=== PATIENT | male | born 1955 | race Caucasian/White ===

== ENCOUNTER 2021-12-24 17:00 | Inpatient (IN) | payer OTHER ==
[~2021-12-24] VITALS: Ht 177.8 cm; Wt 103.5 kg
[~2021-12-24 17:00] MED LIST: BENICAR20 MG PO; MOTRIN200 MG PO; NEXIUM40 MG PO; PROMETHAZINE HC25 M1 PO; TYLENOL WITH C1 EACH PO
[2021-12-24] MEDS ORDERED: DILTIAZEM HCL VIAL 5 ML ONE (17:27)
[2021-12-24] MEDS ORDERED: SODIUM CHLORIDE 0.9% 1000ML 1,000 ML ONE ×2 (17:27→18:00)
[2021-12-24] MEDS ORDERED: SODIUM CHLORIDE 0.9% 1000ML 1,000 ML IV STA ×2 (17:41→19:29)
[2021-12-24 17:43] LABS: BASOPHILS % 0.2 % (0.0-1.0); EOSINOPHILS % 0.2 % (0.0-6.0); HEMATOCRIT 41.9 % (38.2-49.6); LYMPHOCYTES # (AUTO) 2.1 (1.0-3.2); LYMPHOCYTES % 20.1 % (18.0-39.1); MEAN CORPUSCULAR HEMOGLOBIN 29.2 pg (28-32); MEAN CORPUSCULAR HGB CONC 33.4 g/dL (31-35); MEAN CORPUSCULAR VOLUME 87.5 fL (81-99); MONOCYTES # (AUTO) 0.9 (0.2-0.8); MONOCYTES % 8.5 % (4.4-11.3); NEUTROPHILS # (AUTO) 7.4 (2.1-6.9); NEUTROPHILS % 70.5 % (38.7-80.0); PLATELET COUNT 356 x10e3/uL (140-360); RED BLOOD COUNT 4.79 x10e6/uL (4.3-5.7); RED CELL DISTRIBUTION WIDTH 13.9 % (11.7-14.4)
[2021-12-24] MEDS ORDERED: DILTIAZEM HCL 5 MG/ML 5 ML VIAL IV ONE (17:45)
[2021-12-24] MEDS ORDERED: SODIUM CHLORIDE 0.9% 1000ML 1,000 ML IV ONE ×2 (17:50→19:45)
[2021-12-24] MEDS ORDERED: METOPROLOL TARTRATE INJ 1 MG/ML VIAL IV ONE ×2 (18:15)
[2021-12-24 18:21] LABS: MAGNESIUM 2.1 MG/DL (1.3-2.1)
[2021-12-24 18:26] LABS: ALBUMIN 3.7 g/dL (3.5-5.0); ALBUMIN/GLOBULIN RATIO 1.2 (0.8-2.0); ANION GAP 15.6 mmol/L (8-16); CALCIUM 9.1 mg/dL (8.4-10.2); CREATININE, SERUM 1.38 mg/dL (0.72-1.25); POTASSIUM 3.6 mmol/L (3.5-5.1)
[2021-12-24 18:38] LABS: THYROID STIMULATING HORMONE 3.066 uIU/mL (0.350-4.940)
[2021-12-24] MEDS ORDERED: CEFTRIAXONE 1 GM VIAL IV ONE (18:45)
[2021-12-24] MEDS ORDERED: Vancomycin IV 1 GM in SODIUM CHLORIDE 0.9% 250ML 250 ML IV ONE (18:45)
[2021-12-24] MEDS ORDERED: SODIUM CHLORIDE 0.9% 50ML 50 ML ONE ×2 (18:58→19:15)
[2021-12-24] MEDS ORDERED: AMIODARONE HCL 150 MG/100 ML BAG IV ONE (19:15)
[2021-12-24] MEDS ORDERED: IOPAMIDOL 370 MG/ML 200 ML INFUS..BTL INJ ONE (19:16)
[2021-12-24] MEDS ORDERED: AMIODARONE 900MG 500 ML IV ONE (19:25)
[2021-12-24] MEDS ORDERED: AMIODARONE HCL 150MG 100 ML ONE (19:25)
[2021-12-24] MEDS ORDERED: AMIODARONE 900MG 900 MG in Premix Bag 1 BAG IV SCH (19:30)
[2021-12-24 21:55] LABS: CLARITY,URINE CLEAR (CLEAR); COLOR,URINE YELLOW (YELLOW); KETONES,URINE NEGATIVE (NEGATIVE); LEUKOCYTE ESTERASE ,URINE NEGATIVE (NEGATIVE); NITRITE,URINE NEGATIVE (NEGATIVE); PROTEIN,URINE DIPSTICK NEGATIVE (NEGATIVE); RBC,URINE 0-5 /HPF (0-5); URINE UROBILINOGEN 0.2 mg/dL (0.2 - 1); WBC,URINE (MAN) 0-5 /HPF (0-5)
[2021-12-24 21:56] LABS: BACTERIA,URINE FEW /HPF; EPITHELIAL CELLS,URINE FEW /LPF
[2021-12-25] VITALS (23 sets, daily range): BP systolic 84–147; BP diastolic 54–131
[2021-12-25] MEDS: SODIUM CHLORIDE 0.9% 1000ML 1,000 ML IV SCH ×2 (00:28→06:01)
[2021-12-25 04:52] LABS: BASOPHILS % 0.4 % (0.0-1.0); EOSINOPHILS % 0.5 % (0.0-6.0); HEMATOCRIT 38.1 % (38.2-49.6); HEMOGLOBIN 12.3 g/dL (14.0-18.0); LYMPHOCYTES % 24.8 % (18.0-39.1); MEAN CORPUSCULAR HEMOGLOBIN 29.2 pg (28-32); MEAN CORPUSCULAR HGB CONC 32.3 g/dL (31-35); MONOCYTES # (AUTO) 0.7 (0.2-0.8); MONOCYTES % 8.8 % (4.4-11.3); NEUTROPHILS # (AUTO) 5.3 (2.1-6.9); PLATELET COUNT 230 x10e3/uL (140-360); RED BLOOD COUNT 4.21 x10e6/uL (4.3-5.7); RED CELL DISTRIBUTION WIDTH 14.6 % (11.7-14.4)
[2021-12-25 05:01] LABS: MEAN CORPUSCULAR VOLUME 90.5 fL (81-99)
[2021-12-25 05:13] LABS: ANION GAP 11.1 mmol/L (8-16); CALCIUM 7.9 mg/dL (8.4-10.2); CREATININE, SERUM 1.02 mg/dL (0.72-1.25); POTASSIUM 4.1 mmol/L (3.5-5.1)
[2021-12-25] MEDS ORDERED: VENLAFAXINE HCL75 M1 PO (08:15)
[2021-12-25] MEDS ORDERED: ALEVE220 MG PO (08:15)
[2021-12-25] MEDS ORDERED: LEVOCETIRIZINE D5 MG PO (08:15)
[2021-12-25] MEDS ORDERED: METOPROLOL SUCC50 MG PO (08:15)
[2021-12-25] MEDS ORDERED: MONTELUKAST SOD10 MG PO (08:15)
[2021-12-25] MEDS ORDERED: AMLODIPINE BESYL5 MG PO (08:15)
[2021-12-25] MEDS ORDERED: MONTELUKAST SODIUM 10 MG TAB PO SCH (09:00)
[2021-12-25] MEDS ORDERED: NAPROXEN 250 MG TAB PO SCH (09:00)
[2021-12-25] MEDS: AMLODIPINE BESYLATE 5 MG TAB PO SCH (09:22)
[2021-12-25] MEDS: PANTOPRAZOLE SOD 40 MG TABEC PO SCH (09:22)
[2021-12-25 10:47] LABS: INR 1.02; PROTHROMBIN TIME 14.3 seconds (11.9-14.5)
[2021-12-25 10:48] LABS: PARTIAL THROMBOPLASTIN TIME 27.7 seconds (23.8-35.5)
[2021-12-25 11:35] LABS: CHOL/HDL RATIO 5.5 (3.9-4.7)
[2021-12-25] MEDS: METOPROLOL SUCCINATE 50 MG TAB XL PO SCH (11:45)
[2021-12-25] MEDS: APIXABAN 5 MG TABLET PO SCH ×2 (11:45→17:01)
[2021-12-25] MEDS: DOCUSATE SODIUM 100 MG CAP PO SCH (11:45)
[2021-12-25] MEDS: SENNOSIDES 8.6 MG TAB PO SCH (11:45)
[2021-12-25] MEDS: AMIODARONE HCL 200 MG TAB PO SCH (11:46)
[2021-12-25] MEDS ORDERED: HEPARIN SOD (PORCINE) 5,000 UNIT/ML VIAL SC SCH (14:00)
[2021-12-26] VITALS: BP 117/75
[2021-12-26 04:00] VITALS: BP 117/81
[2021-12-26 05:44] LABS: BASOPHILS % 0.3 % (0.0-1.0); EOSINOPHILS # (AUTO) 0.1 (0.0-0.4); EOSINOPHILS % 1.4 % (0.0-6.0); HEMATOCRIT 37.7 % (38.2-49.6); HEMOGLOBIN 12.5 g/dL (14.0-18.0); LYMPHOCYTES # (AUTO) 2.1 (1.0-3.2); MEAN CORPUSCULAR HEMOGLOBIN 29.2 pg (28-32); MEAN CORPUSCULAR HGB CONC 33.2 g/dL (31-35); MEAN CORPUSCULAR VOLUME 88.1 fL (81-99); MONOCYTES # (AUTO) 0.6 (0.2-0.8); MONOCYTES % 8.5 % (4.4-11.3); NEUTROPHILS # (AUTO) 4.1 (2.1-6.9); NEUTROPHILS % 59.4 % (38.7-80.0); PLATELET COUNT 272 x10e3/uL (140-360); RED BLOOD COUNT 4.28 x10e6/uL (4.3-5.7); RED CELL DISTRIBUTION WIDTH 14.2 % (11.7-14.4)
[2021-12-26 06:08] LABS: ALBUMIN 3.1 g/dL (3.5-5.0); ALBUMIN/GLOBULIN RATIO 1.2 (0.8-2.0); ANION GAP 9.9 mmol/L (8-16); CALCIUM 8.2 mg/dL (8.4-10.2); CREATININE, SERUM 1.03 mg/dL (0.72-1.25); POTASSIUM 3.9 mmol/L (3.5-5.1)
[2021-12-26 06:32] LABS: FREE T4 (FREE THYROXINE) 0.88 ng/dL (0.8-1.8); THYROID STIMULATING HORMONE 1.596 uIU/mL (0.350-4.940)
[2021-12-26] MEDS: PANTOPRAZOLE SOD 40 MG TABEC PO SCH (06:40)
[2021-12-26 08:00] VITALS: BP 130/75
[2021-12-26 08:04] VITALS: BP 117/81
[2021-12-26] MEDS: AMLODIPINE BESYLATE 5 MG TAB PO SCH (09:02)
[2021-12-26] MEDS: APIXABAN 5 MG TABLET PO SCH (09:02)
[2021-12-26] MEDS: AMIODARONE HCL 200 MG TAB PO SCH (09:02)
[2021-12-26] MEDS: SENNOSIDES 8.6 MG TAB PO SCH (09:02)
[2021-12-26] MEDS: METOPROLOL SUCCINATE 50 MG TAB XL PO SCH (09:02)
[2021-12-26] MEDS: DOCUSATE SODIUM 100 MG CAP PO SCH (09:02)
[2021-12-26 12:13] VITALS: BP 125/84
== END 2021-12-26 13:32 | disposition home or self-care (01) | DRG 309 ==
LOC: ER 17:05 → ERHOLD 21:53 → ICU 23:43 → MED/SURG 12-25 14:17
PROVIDERS: ADMIT Internal Medicine; ATTEND Internal Medicine
DX: I48.0 Paroxysmal atrial fibrillation (principal); N17.9 Acute kidney failure, unspecified; Z79.01 Long term (current) use of anticoagulants; J42 Unspecified chronic bronchitis; I11.9 Hypertensive heart disease without heart failure; E66.9 Obesity, unspecified; Z68.32 Body mass index [BMI] 32.0-32.9, adult; K44.9 Diaphragmatic hernia without obstruction or gangrene; F10.10 Alcohol abuse, uncomplicated; K21.9 Gastro-esophageal reflux disease without esophagitis; Z20.822 Contact with and (suspected) exposure to COVID-19; J45.909 Unspecified asthma, uncomplicated; Z86.16 Personal history of COVID-19; Z88.0 Allergy status to penicillin
CPT/HCPCS: 36415; 71045; 71260; 80048; 80053; 80061; 81001; 83605; 83735; 83880; 84439; 84443; 84484; 85025; 85379; 85610; 85730; 87040; 87086; 93005; 93306; 96366; 99284; J0696; J3370; J7030; J7050; Q9967; U0002

== ENCOUNTER → 2022-04-20 | Outpatient (CLI) | payer OTHER ==
[~2022-04-20] MED LIST changes: +ALEVE220 MG PO; +AMLODIPINE BESYL5 MG PO; +LEVOCETIRIZINE D5 MG PO; +METOPROLOL SUCC50 MG PO; +MONTELUKAST SOD10 MG PO; +VENLAFAXINE HCL75 M1 PO
== END ==
LOC: RAD 11:46
PROVIDERS: ATTEND Internal Medicine
DX: J40 Bronchitis, not specified as acute or chronic (principal); U07.1 COVID-19
CPT/HCPCS: 71046

== ENCOUNTER → 2022-05-04 | Day surgery (SDC) | payer OTHER ==
[~2022-05-04] MED LIST changes: +LIDOCAINE HCL 2% LOCAL INJ 5 ML SDV VIAL INJ ONE; +METOCLOPRAMIDE HCL 10 MG/2ML VIAL ONE; +MIDAZOLAM HCL 2 MG/2 ML VIAL ONE; +PROPOFOL IV EMULSION 10 MG/ML 20 ML VIAL ONE; +XARELTO10 MG PO
[2022-05-04 10:21] LABS: EOSINOPHILS % 0.5 % (0.0-6.0); HEMATOCRIT 41.5 % (38.2-49.6); HEMOGLOBIN 13.3 g/dL (14.0-18.0); LYMPHOCYTES # (AUTO) 1.5 (1.0-3.2); LYMPHOCYTES % 18.9 % (18.0-39.1); MEAN CORPUSCULAR HEMOGLOBIN 29.2 pg (28-32); MEAN CORPUSCULAR VOLUME 91.2 fL (81-99); MONOCYTES # (AUTO) 0.8 (0.2-0.8); MONOCYTES % 9.7 % (4.4-11.3); NEUTROPHILS # (AUTO) 5.7 (2.1-6.9); PLATELET COUNT 333 x10e3/uL (140-360); RED BLOOD COUNT 4.55 x10e6/uL (4.3-5.7); RED CELL DISTRIBUTION WIDTH 15.3 % (11.7-14.4)
[2022-05-04 14:20] VITALS: BP 114/72
== END | disposition home or self-care (01) ==
LOC: ENDO 09:21
PROVIDERS: ATTEND Internal Medicine Gastroenterology
DX: K20.90 Esophagitis, unspecified without bleeding (principal); K31.7 Polyp of stomach and duodenum; K29.50 Unspecified chronic gastritis without bleeding; K31.89 Other diseases of stomach and duodenum; K21.9 Gastro-esophageal reflux disease without esophagitis; K44.9 Diaphragmatic hernia without obstruction or gangrene; Z71.3 Dietary counseling and surveillance; I48.91 Unspecified atrial fibrillation; R05.3 Chronic cough; I10 Essential (primary) hypertension; E66.9 Obesity, unspecified; M19.90 Unspecified osteoarthritis, unspecified site; M06.9 Rheumatoid arthritis, unspecified; Z88.0 Allergy status to penicillin; Z01.812 Encounter for preprocedural laboratory examination; Z20.822 Contact with and (suspected) exposure to COVID-19; Z79.02 Long term (current) use of antithrombotics/antiplatelets; Z79.899 Other long term (current) drug therapy; Z68.30 Body mass index [BMI] 30.0-30.9, adult; Z85.828 Personal history of other malignant neoplasm of skin; Z86.16 Personal history of COVID-19
CPT/HCPCS: 0223U; 36415; 43239; 43450; 85025; 93005; C9113; J2001; J2250; J2704; J2765